=== PATIENT | male | born 1955 | race Caucasian/White ===

== ENCOUNTER 2021-01-11 16:38 | Emergency (ER) | payer OTHER ==
[~2021-01-11] VITALS: Ht 165.1 cm; Wt 72.6 kg
[2021-01-11 16:53] VITALS: BP 114/74
--- NOTE | 2021-01-11 16:57 | NUR ---
PATIENT SENT TO LOBBY
[2021-01-11] MEDS ORDERED: FLUORESCEIN OPTH STRIP 1 MG OP ONE (17:25)
[2021-01-11] MEDS ORDERED: TETRACAINE HCL/PF 0.5% OPTH 4 ML BTL OP ONE (17:25)
--- NOTE | 2021-01-11 17:45 | NUR ---
BOTH 20/25 LEFT 20/50 RIGHT 20/25
[2021-01-11] MEDS ORDERED: TETRACAINE HCL/PF 0.5% OPTH 4 ML BTL ONE (19:11)
[2021-01-11] MEDS ORDERED: FLUORESCEIN OPTH STRIP 1 MG ONE (19:11)
--- NOTE | 2021-01-11 19:13 | NUR ---
"MEDICATION PULLED FROM e|tab, ADMINISTERED BY HEATHER MARTINEZ."
[2021-01-11] MEDS ORDERED: OFLOS RIGHT EYE (19:48)
[2021-01-11 20:06] VITALS: BP 114/74
--- NOTE | 2021-01-11 20:09 | NUR ---
Patient discharged with v/s stable. Written and verbal after care instructions given and explained. Patient verbalized understanding. Ambulatory with steady gait. All questions addressed prior to discharge. Advised to follow up with PMD.
== END 2021-01-11 20:06 | disposition home or self-care (01) ==
LOC: MED 16:38
DX: T15.92XA Foreign body on external eye, part unspecified, left eye, initial encounter (principal); Z79.899 Other long term (current) drug therapy
CPT/HCPCS: 65220; 99283